=== PATIENT | female | born 1955 | race Caucasian/White ===

== ENCOUNTER 2017-05-27 10:05 | Observation (INO) | payer BC ==
[~2017-05-27] VITALS: Ht 157.5 cm; Wt 74.5 kg
[2017-05-27] MEDS ORDERED: VALTREX500 MG PO (15:20)
[2017-05-27] MEDS ORDERED: GABAPENTIN100 MG PO (15:20)
[2017-05-27] MEDS ORDERED: PREMPRO 0.625/21 TA1 PO (15:21)
[2017-05-27] MEDS ORDERED: NORVASC5 MG PO (15:21)
[2017-05-27] MEDS ORDERED: ATIVAN0.5 MG PO (15:22)
[2017-05-27] MEDS ORDERED: TRAZODONE HCL50 MG PO (15:33)
[2017-05-27 15:44] VITALS: Ht 157.5 cm; Wt 74.5 kg
[2017-05-28 12:00] VITALS: BP 104/60
== END 2017-05-28 17:56 | disposition home or self-care (01) ==
LOC: D.RAD 10:05 → D.ER 10:05 → EDSTATUS 10:41 → OBSVTIME 14:18 → D.M2 14:18
PROVIDERS: ADMIT Family Medicine
DX: R07.9 Chest pain, unspecified (principal); Q24.5 Malformation of coronary vessels; I10 Essential (primary) hypertension; F41.9 Anxiety disorder, unspecified; F32.9 Major depressive disorder, single episode, unspecified; M79.7 Fibromyalgia

== ENCOUNTER → 2017-06-19 08:09 | Outpatient (CLI) | payer BC ==
[~2017-06-19 08:09] MED LIST: ATIVAN0.5 MG PO; GABAPENTIN100 MG PO; NORVASC5 MG PO; PREMPRO 0.625/21 TA1 PO; TRAZODONE HCL50 MG PO; VALTREX500 MG PO
== END | disposition home or self-care (01) ==
LOC: D.CT 08:09
DX: R07.9 Chest pain, unspecified (principal)

== ENCOUNTER → 2017-10-08 17:30 | Outpatient (CLI) | payer BC | END | disposition home or self-care (01) | LOC: D.MAMMO 08-18 08:30 | DX: N64.4 Mastodynia (principal) ==

== ENCOUNTER → 2018-03-24 16:02 | Outpatient (CLI) | payer BC | END | disposition home or self-care (01) | LOC: D.RAD 16:02 | DX: M54.5 Low back pain (principal) ==